=== PATIENT | female | born 1980 | race Caucasian/White ===

== ENCOUNTER → 2021-11-28 | Outpatient (CLI) | payer OTHER ==
[~2021-11-28] MED LIST: FEXPSEER; HYDACE5 PO; META800 PO; NAPR500 PO
== END ==
LOC: PLD 13:43 → LAB 13:43 → LAB SHORT 13:43
DX: N92.0 Excessive and frequent menstruation with regular cycle (principal)
CPT/HCPCS: 88305

== ENCOUNTER → 2022-03-07 | Outpatient (CLI) | payer OTHER ==
[2022-03-09 04:09] LABS: CHLAMYDIA BY NAA Negative (Negative); GONOCOCCUS BY NAA Negative (Negative); TRICH VAG BY NAA Negative (Negative)
== END | disposition home or self-care (01) ==
LOC: LAB 11:54 → LAB SHORT 11:54
PROVIDERS: Obstetrics & Gynecology
DX: Z11.3 Encounter for screening for infections with a predominantly sexual mode of transmission (principal)
CPT/HCPCS: 87491; 87591; 87661

== ENCOUNTER 2022-10-24 08:01 | Day surgery (SDC) | payer OTHER ==
[~2022-10-24] VITALS: Ht 162.6 cm; Wt 81.4 kg
--- NOTE | 2022-10-24 09:04 | NUR ---
10/24/22 0904 Deb Dawson HISTORY, CHART, MEDICATIONS AND ALLERGIES REVIEWED BEFORE START OF PROCEDURE. PATIENT CONFIRMS NPO STATUS AND AGREES WITH SCHEDULED PROCEDURE. 3-LEAD EKG REVIEWED WITH PHYSICIAN PRIOR TO START OF PROCEDURE. MONITOR INTACT WITH CONTINUOUS PULSE OXIMETRY,CAPNOGRAPHY, 3-LEAD EKG, INTERMITTENT BP. SUPPLEMENTAL O2 TO BE TITRATED THROUGHOUT PROCEDURE TO MAINTAIN O2 SATURATION ABOVE 90%. PATIENT DETERMINED TO BE ASA APPROPRIATE FOR PROPOFOL SEDATION PRIOR TO START OF PROCEDURE BY DR. TRIVEDI.
--- NOTE | 2022-10-24 10:30 | NUR ---
Patient up to Ambulate independently. Gait steady. Discharge instructions reviewed with patient. Patient verbalizes understanding. Copy given to patient to take home. Discharged via wheelchair to private car for ride home.
== END 2022-10-24 23:05 | disposition home or self-care (01) ==
LOC: ORSCMMR 08:01 → ORD 09:00 → ORSCMMR 23:05
PROVIDERS: Internal Medicine Gastroenterology
PROC: 0DBH8ZX Excision of Cecum, Via Natural or Artificial Opening Endoscopic, Diagnostic (ICD-10-PCS; principal; 2022-10-24 09:00)
PROC: 0DBN8ZX Excision of Sigmoid Colon, Via Natural or Artificial Opening Endoscopic, Diagnostic (ICD-10-PCS; principal; 2022-10-24 09:00)
PROC: 0DBP8ZX Excision of Rectum, Via Natural or Artificial Opening Endoscopic, Diagnostic (ICD-10-PCS; principal; 2022-10-24 09:00)
DX: R10.31 Right lower quadrant pain (principal); Z15.09 Genetic susceptibility to other malignant neoplasm; Q87.89 Other specified congenital malformation syndromes, not elsewhere classified; D12.0 Benign neoplasm of cecum; K63.5 Polyp of colon; K62.1 Rectal polyp
CPT/HCPCS: 88305; J2250; J2704; J3010; J7120

== ENCOUNTER 2023-06-27 06:19 | Day surgery (SDC) | payer OTHER ==
[~2023-06-27] VITALS: Ht 162.6 cm; Wt 86.6 kg
[2023-06-27] VITALS (15 sets, daily range): BP systolic 106–131; BP diastolic 64–85
--- NOTE | 2023-06-27 07:45 | NUR ---
Ambulatory in Day Surgery Patient confirms NPO status and agrees with scheduled surgery. History, Chart, Medications and Allergies reviewed before start of procedure.Pre-Op teaching done. Pt verbalizes understanding.
--- NOTE | 2023-06-27 08:24 | NUR ---
06/27/23 0824 Sheila Renteria PRIOR TO SURGERY START SHEPHERD TABLE IN PLACE AND SECURED TO PROTECTS PATIENT'S FACE,HEAD,AND INTUBATION TUBE.
--- NOTE | 2023-06-27 11:33 | NUR ---
PT ARRIVED TO UNIT AT APROX 1115 FROM PACU. LAP SITES X'S 4 CLOSED W/WOUND GLUE C/D/I. PT DENIES PAIN BUT REPORTS MILD CRAMPING-KPAD APPLED. PT GIVEN CLEAR LIQUIDS, WILL ADVANCE TOLERATED. NO RAMIREZ ON ARRIVAL TO UNIT, DC'D IN OR.
--- NOTE | 2023-06-27 20:43 | NUR ---
pt provided with discharge instructions, which she states understanding off and asks questions, shows engagement. Pt provided with printed material. Peripheral IV removed earlier this shift wnl. pt's spouse took pt's possessions to awaiting vehicle. Pt transferred to awaiting vehicle via wheelchair.
== END 2023-06-27 20:45 | disposition home or self-care (01) ==
LOC: ORSCMMR 06:19 → SURS 11:05 → ORSCMMR 20:45
DX: D25.0 Submucous leiomyoma of uterus (principal); N93.9 Abnormal uterine and vaginal bleeding, unspecified; N92.0 Excessive and frequent menstruation with regular cycle; Q50.5 Embryonic cyst of broad ligament; E66.9 Obesity, unspecified; Z68.33 Body mass index [BMI] 33.0-33.9, adult
CPT/HCPCS: 58571; S2900; 86850; 86900; 86901; 88307; A9270; J0690; J1100; J1170; J1200; J1885; J2250; J2371; J2405; J2704; J3010; J7120

== ENCOUNTER 2023-09-13 18:40 | Emergency (ER) | payer OTHER ==
[~2023-09-13] VITALS: Ht 162.6 cm; Wt 86.2 kg
[2023-09-13 19:15] LABS: BASOPHILS ABSOLUTE AUTO 0.07 K/mm3 (0.00-0.23); BASOPHILS PERCENT AUTO 1 % (0-2); EOSINOPHILS ABSOLUTE AUTO 0.21 K/mm3 (0.00-0.68); EOSINOPHILS PERCENT AUTO 2 % (0-6); Hematocrit 43.6 % (33.0-51.0); Hemoglobin 14.8 g/dL (11.5-16.0); IMMATURE GRAN ABSOLUTE AUTO 0.07 K/mm3 (0.00-0.10); IMMATURE GRAN PERCENT AUTO 1 % (0-1); LYMPHOCYTES ABSOLUTE AUTO 4.56 K/mm3 (0.84-5.20); LYMPHOCYTES PERCENT AUTO 39 % (21-46); MONOCYTES ABSOLUTE AUTO 0.72 K/mm3 (0.16-1.47); MONOCYTES PERCENT AUTO 6 % (4-13); Mean Corpuscular HGB Conc 33.9 g/dL (31.5-36.5); Mean Corpuscular Volume 88 fL (80-100); Mean Platelet Volume 10.6 fL (9.1-12.4); NEUTROPHILS ABSOLUTE AUTO 6.09 K/mm3 (1.96-9.15); NEUTROPHILS PERCENT AUTO 52 % (41-73); Platelet Count 317 K/mm3 (150-400); RDW Coefficient Variation 12.8 % (11.7-14.2); RDW Standard Deviation 41.6 fL (35.1-46.3); Red Blood Cell Count 4.93 M/mm3 (3.80-5.20); White Blood Cell Count 11.72 K/mm3 (4.00-11.30)
[2023-09-13 19:44] LABS: Albumin, Blood 3.9 g/dL (3.4-5.0); Bilirubin, Total 0.3 mg/dL (0.1-1.0); Bun/Creatinine Ratio 15.7 (12.0-20.0); Calcium, Blood 9.2 mg/dL (8.5-10.1); Creatinine, Blood 0.89 mg/dL (0.40-1.00); Potassium, Blood 2.9 mmol/L (3.5-5.5); Total Protein, Blood 7.9 g/dL (6.4-8.2)
[2023-09-13 19:56] LABS: Magnesium, Blood 2.2 mg/dL (1.6-2.4)
[2023-09-13 19:57] LABS: Thyroid Stimulating Hormone 0.941 uIU/mL (0.360-4.800)
[2023-09-13 23:00] VITALS: BP 122/81
[2023-09-13] MEDS ORDERED: POTA10T PO (23:20)
== END 2023-09-13 23:30 | disposition home or self-care (01) ==
LOC: ER 18:40
PROVIDERS: Student in an Organized Health Care Education/Training Program
DX: E87.6 Hypokalemia (principal)
CPT/HCPCS: 71045; 80053; 83735; 84443; 84484; 85025; 93005; 93010; 96361; 96365; 96366; 96375; 99285-25; A9270; J1885; J3480; J7030

== ENCOUNTER → 2024-11-22 | Outpatient (CLI) | payer OTHER ==
[~2024-11-22] MED LIST changes: +POTA10T PO
== END | disposition home or self-care (01) ==
LOC: LAB SHORT 10:25 → LAB 10:25
DX: N39.0 Urinary tract infection, site not specified (principal)
CPT/HCPCS: 87077; 87086; 87186

== ENCOUNTER → 2025-02-16 | Outpatient (CLI) | payer OTHER | LOC: LAB SHORT 14:20 → LAB 14:20 | DX: R30.0 Dysuria (principal) | CPT/HCPCS: 87086 ==